=== PATIENT | female | born 1995 | race Caucasian/White ===

== ENCOUNTER 2021-11-18 04:02 | Emergency (ER) | payer BC ==
[~2021-11-18] VITALS: Ht 165.1 cm; Wt 52.2 kg
[2021-11-18] MEDS ORDERED: ALDACTONE100 MG PO (04:23)
[2021-11-18] MEDS ORDERED: BLISOVI 24 FE1 EACH PO (04:24)
[2021-11-19] MEDS ORDERED: HYDROCODON-ACE1 EA10 PO (05:45)
== END 2021-11-18 05:59 | disposition home or self-care (01) ==
LOC: ED 04:02
DX: R10.31 Right lower quadrant pain (principal); Z79.899 Other long term (current) drug therapy
CPT/HCPCS: 36415; 74177; 80053; 81001; 83690; 84703; 85025; 99284-25; J1885; Q9967

== ENCOUNTER 2021-11-19 01:53 | Emergency (ER) | payer BC ==
[~2021-11-19] VITALS: Ht 165.1 cm; Wt 52.2 kg
[~2021-11-19 01:53] MED LIST: ALDACTONE100 MG PO; BLISOVI 24 FE1 EACH PO
--- OUTSIDE RECORDS SUMMARY | 2021-11-19 02:02 | XMS ---
PreManage Notification: ZUIEL MTZ Security Category Development Analyst Events No recent Security Events currently on file CRITERIA MET - [facility] - 2 Visits in 30 Days CARE PROVIDERS FRITZ SALAZAR Nurse Practitioner: Women's Health Current PHONE: [phone] JCARLOS [facility] Current PHONE: Unknown Jessica has no Care Guidelines for this patient. Tom VISIT COUNT (12 MO.) [address] [place] [address] TOTAL 2 NOTE: Visits indicate total known visits. ED/UCC VISIT TRACKING (12 MO.) 11/19/2021 01:54 [facility] [place] TYPE: Emergency COMPLAINT: - LOWER ABD WAS HERE YESTERDAY 11/18/2021 04:02 [facility] [place] TYPE: Emergency COMPLAINT: - ABD PAIN INPATIENT VISIT TRACKING (12 MO.) No inpatient visits to display in this time frame [email or web address]
[2021-11-19] MEDS ORDERED: HYDROCODON-ACE1 EA10 PO (05:45)
== END 2021-11-19 06:22 | disposition home or self-care (01) ==
LOC: ED 01:53
DX: N83.201 Unspecified ovarian cyst, right side (principal); Z79.899 Other long term (current) drug therapy
CPT/HCPCS: 76830; 76856; 87491; 99284-25; A9270